=== PATIENT | female | born 1975 | race Caucasian/White ===

== ENCOUNTER → 2020-12-13 | Outpatient (CLI) | payer OTHER ==
[~2020-12-13] MED LIST: METHACHOLINE KIT (J7674) INH ONE
--- NOTE | 2020-12-13 09:00 | PFTRPT ---
Site: [facility], [address] [place] [address], [address] ID: [id number] Name: KATE MONTEIRO Visit Date: 12/13/2020 Second ID: [id number] Referring Doctor: Burke Mendes Reviewing Doctor: Virgil Gomez MD Proof Press Operator: Henrry REY RRT Age: 45 : 1975 Sex: Female Race: Height: 64.00 Inches Weight: 182.00 Lbs BSA: 1.88 Order IDs: [id number] Requested Test(s): <RESP-PFT.PFT B/A> Diagnosis: DYSPNEA test meet the ATS standards for acceptability and repeatability. Review Status: Not Reviewed Pre-Bronch Post-Bronch Pred Actual %Pred Actual %Chng SPIROMETRY FVC (L) 3.59 3.64 101 FEV1 (L) 2.87 3.10 108 FEV1/FVC (%) 81 85 105 FEF 25% (L/sec) 5.29 7.45 140 FEF 50% (L/sec) 4.00 4.35 108 FEF 75% (L/sec) 1.50 1.61 107 FEF 25-75% (L/sec) 2.86 3.65 127 FEF Max (L/sec) 6.82 7.55 110 FIVC (L) 3.65 FIF 50% (L/sec) 3.85 2.68 69 FIF Max (L/sec) 3.05 MVV (L/min) 99 96 97 Expiratory Time (sec) 6.45 Back Extrap Vol (L) 0.14 Time To FEFmax (sec) 0.104 LUNG VOLUMES SVC (L) 3.32 3.68 110 IC (L) 2.23 2.87 128 ERV (L) 1.09 0.80 73 TGV (L) 2.82 2.63 93 RV (Pleth) (L) 1.73 1.82 105 TLC (Pleth) (L) 5.05 5.50 108 RV/TLC (Pleth) (%) 34 33 97 DIFFUSION DLCOunc (ml/min/mmHg) 23.04 21.96 95 DL/VA (ml/min/mmHg/L) 4.56 4.31 94 VA (L) 5.05 5.09 100 BHT (sec) 10.47 IVC (L) 3.65 TLC (SB) (L) 5.24 AIRWAYS RESISTANCE Raw (cmH2O/L/s) 1.86 1.57 84 Gaw (L/s/cmH2O) 1.03 0.64 62 sRaw (cmH2O*s) 4.76 4.83 101 sGaw (1/cmH2O*s) 0.20 0.21 104
--- NOTE | 2020-12-13 09:44 | PFTRPT ---
Site: [facility], [address] [place], [address] ID: [id number] Name: KATE MONTEIRO Visit Date: 12/13/2020 Second ID: [id number] Referring Doctor: Burke Mendes Reviewing Doctor: Virgil Gomez MD Technical Lead: Henrry REY RRT Age: 45 : 1975 Sex: Female Race: Height: 64.00 Inches Weight: 182.00 Lbs BSA: 1.88 Order IDs: [id number] Requested Test(s): <RESP-PFT.METH CHAL> Diagnosis: DYSPNEA of albuterol for post bronchodilator. Review Status: Not Reviewed Pre-Bronch Post-Bronch Pred Actual %Pred Actual %Chng SPIROMETRY FVC (L) 3.59 3.63 101 3.52 -2 FEV1 (L) 2.87 3.10 107 2.93 -5 FEV1/FVC (%) 81 85 105 83 -2 FEF 25% (L/sec) 5.29 6.71 126 5.63 -16 FEF 50% (L/sec) 4.00 4.31 107 4.11 -4 FEF 75% (L/sec) 1.50 1.74 116 1.15 -33 FEF 25-75% (L/sec) 2.86 3.56 124 3.20 -9 FEF Max (L/sec) 6.82 6.80 99 5.70 -16 FIVC (L) 3.54 3.40 -4 FIF 50% (L/sec) 3.85 4.44 115 3.84 -13 FIF Max (L/sec) 4.64 3.98 -14 Expiratory Time (sec) 6.45 6.44 Back Extrap Vol (L) 0.13 0.13 1 Time To FEFmax (sec) 0.104 0.128 22
== END ==
LOC: M CARPUL 07:56
PROVIDERS: ATTEND Family Medicine
DX: R60.0 Localized edema (principal)